=== PATIENT | female | born 1995 | race Caucasian/White ===

== ENCOUNTER 2017-02-26 10:52 | Emergency (ER) | payer SELFPAY ==
[~2017-02-26] VITALS: Ht 154.9 cm; Wt 82.6 kg
[2017-02-26] MEDS ORDERED: PREN1CHW4 PO (11:05)
[2017-02-26 13:14] LABS: BASO % 0.4 % (0.0-1.0); EOS # 0.2 K/mm3 (0.0-0.50); EOS % 2.1 % (0.0-3.0); LARGE UNSTAINED CELL # 0.1 K/mm3 (0.0-0.4); LARGE UNSTAINED CELL % 1.3 % (0.0-4.0); LYMPH # 1.8 K/mm3 (1.5-6.5); LYMPH % 15.3 % (24.0-44.0); MEAN CORPUSCULAR HEMOGLOBIN 28.5 pg (27.0-33.0); MEAN CORPUSCULAR VOLUME 83.7 fl (80.0-96.0); MONO # 0.6 K/mm3 (0.0-0.8); MONO % 5.1 % (0.0-5.0); NEUTROPHILS # 8.4 K/mm3 (1.8-7.7); NEUTROPHILS % 75.8 % (36.0-66.0); PLATELET COUNT, AUTOMATED 280 k/mm3 (150-450)
[2017-02-26 13:24] LABS: INR 0.94
--- NOTE | 2017-02-26 13:30 | REP ---
OB ULTRASOUND, SINGLE GESTATION: HISTORY: Adnexal pain. A single intrauterine is present in variable position. Biparietal diameter is 4.4 cm corresponding to a gestational age of 19 weeks 2 days. Head circumference is 16 cm corresponding to a gestational age of 18 weeks 6 days. Abdominal circumference is 13.1 cm corresponding to a gestational age of 18 weeks 6 days. Femur length is 3 cm corresponding to a gestational age of 19 weeks 2 days. Humerus length is 2.8 cm corresponding to a gestational age of 19 weeks 0 days. heart rate is 153 beats per minute. weight is 269 grams. The visualized anatomy appears normal. The placenta is located anterior. There is no placenta previa or abruption. The amniotic fluid is within normal limits. The cervix measures 4.7 cm. IMPRESSION: There is a single intrauterine with gestational age by ultrasound of 19 weeks 0 days. Signed by Dev Ireland MD 02/26/2017 01:35 P
[2017-02-26 13:33] LABS: CONTROL LINE HCG INT CTR LINE PRESENT
[2017-02-26 13:43] LABS: ALBUMIN 3.2 GM/DL (3.2-5.2); ALBUMIN/GLOBULIN RATIO 0.82 (1.00-1.93); ALKALINE PHOSPHATASE 69 U/L (45-117); ALT/SGPT 12 U/L (12-78); AMYLASE 40 U/L (25-115); ANION GAP 11 MEQ/L (8-16); AST/SGOT 8 U/L (15-37); BILIRUBIN,DIRECT < 0.1 MG/DL (0.0-0.2); BILIRUBIN,TOTAL 0.3 MG/DL (0.2-1.0); BLOOD UREA NITROGEN 9 MG/DL (7-18); CALCIUM LEVEL 8.7 MG/DL (8.5-10.1); CARBON DIOXIDE LEVEL 23 MEQ/L (21-32); CHLORIDE LEVEL 106 MEQ/L (98-107); GLOMERULAR FILTRATION RATE > 60.0 (>60); GLUCOSE, FASTING 72 MG/DL (70-105); POTASSIUM SERUM 4.4 MEQ/L (3.5-5.1); SODIUM LEVEL 140 MEQ/L (136-145); TOTAL PROTEIN 7.1 GM/DL (6.4-8.2)
--- NOTE | 2017-02-26 13:51 | REP ---
LIMITED PELVIC ULTRASOUND: HISTORY: Right lower quadrant pain. The examination is limited. The appendix is not seen. There are no mesenteric lymph nodes. There is no mesenteric inflammation or free fluid. IMPRESSION: Limited examination. The appendix is not seen. Signed by Dev Ireland MD 02/26/2017 01:51 P
[2017-02-26] MEDS ORDERED: cefTRIAXone SOD 2 GM in D5W MINI-BAG PLUS 50 ML IV ONE (14:45)
[2017-02-26] MEDS ORDERED: KEFL500C17 PO (14:46)
[2017-02-26 15:33] VITALS: BP 123/58
== END 2017-02-26 15:52 | disposition home or self-care (01) ==
LOC: EEVIPCON 10:52 → M ED 10:52
DX: O23.42 Unspecified infection of urinary tract in pregnancy, second trimester (principal); Z59.0 Homelessness; O99.332 Smoking (tobacco) complicating pregnancy, second trimester; Z3A.19 19 weeks gestation of pregnancy; Z79.899 Other long term (current) drug therapy
CPT/HCPCS: 76811; 76857; 80048; 80076; 81001; 82150; 83605; 83690; 84703; 85025; 85610; 85730; 87040; 87088; 87186; 87491; 87591; 93041; 96365; 99284; J0696